=== PATIENT | female | born 2000 | race Caucasian/White ===

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

== ENCOUNTER 2018-01-14 03:52 | Emergency (ER) | payer OTHER, MEDICAID ==
[~2018-01-14] VITALS: Ht 154.9 cm; Wt 68.0 kg
[~2018-01-14 03:52] MED LIST: ACETAMINOPHEN-1 EAC1 PO; CYCLOBENZAPRINE5 MG PO; IBUPROFEN 800800 MG PO
[2018-01-14] MEDS ORDERED: NAPROSYN500 MG (03:59)
[2018-01-14 04:00] VITALS: BP 141/94
[2018-01-14] MEDS ORDERED: AUGMENTIN 875-1 EACH (04:00)
[2018-01-14] MEDS ORDERED: HYDROCODONE-AP1 EAC6 PO (04:04)
== END 2018-01-14 04:15 | disposition home or self-care (01) ==
LOC: M.ERS 03:52
DX: K02.9 Dental caries, unspecified (principal); R59.1 Generalized enlarged lymph nodes

== ENCOUNTER 2018-02-27 00:26 | Emergency (ER) | payer OTHER ==
[~2018-02-27] VITALS: Ht 154.9 cm; Wt 70.3 kg
[~2018-02-27 00:26] MED LIST changes: +AUGMENTIN 875-1 EACH; +HYDROCODONE-AP1 EAC6 PO; +NAPROSYN500 MG
[2018-02-27] MEDS ORDERED: IBUPROFEN 800800 M1 PO (00:52)
[2018-02-27 01:11] LABS: URINE BILIRUBIN NEGATIVE (Negative); URINE BLOOD NEGATIVE (Negative); URINE CLARITY CLEAR; URINE COLOR YELLOW; URINE GLUCOSE-RANDOM NEGATIVE (Negative); URINE KETONES NEGATIVE (Negative); URINE LEUKOCYTES-REFLEX NEGATIVE (Negative); URINE NITRITE-REFLEX NEGATIVE (Negative); URINE PROTEIN NEGATIVE (Negative); URINE SPECIFIC GRAVITY 1.025 (1.005-1.030); URINE UROBILINOGEN 0.2 E.U./dl (0.2-1.0)
[2018-02-27 01:46] VITALS: BP 131/80
== END 2018-02-27 01:46 | disposition home or self-care (01) ==
LOC: M.ERS 00:26
PROVIDERS: Emergency Medicine
DX: M54.9 Dorsalgia, unspecified (principal); R10.10 Upper abdominal pain, unspecified; R11.2 Nausea with vomiting, unspecified; F17.210 Nicotine dependence, cigarettes, uncomplicated

== ENCOUNTER → 2018-02-28 | Outpatient (CLI) | payer OTHER ==
[~2018-02-28] MED LIST changes: +IBUPROFEN 800800 M1 PO
== END ==
LOC: M.CT 15:38
DX: K82.0 Obstruction of gallbladder (principal)

== ENCOUNTER 2018-03-13 21:34 | Emergency (ER) | payer OTHER ==
[~2018-03-13] VITALS: Ht 154.9 cm; Wt 74.4 kg
[2018-03-13] MEDS ORDERED: AMOXICILLIN 50500 MG PO (22:17)
[2018-03-13 22:40] VITALS: BP 123/70
== END 2018-03-13 22:43 | disposition home or self-care (01) ==
LOC: M.ERS 21:34
DX: J02.9 Acute pharyngitis, unspecified (principal)

== ENCOUNTER 2018-03-17 23:30 | Emergency (ER) | payer OTHER ==
[~2018-03-17] VITALS: Ht 154.9 cm; Wt 74.4 kg
[~2018-03-17 23:30] MED LIST changes: +AMOXICILLIN 50500 MG PO
[2018-03-17] MEDS ORDERED: CLARITIN10 MG PO (23:47)
[2018-03-17] MEDS ORDERED: AFRIN15 ML NASAL (23:47)
[2018-03-17] MEDS ORDERED: MEDROLDOSEPACK PO (23:47)
[2018-03-17 23:55] VITALS: BP 125/85
== END 2018-03-17 23:56 | disposition home or self-care (01) ==
LOC: M.ERS 23:30
DX: J06.9 Acute upper respiratory infection, unspecified (principal); F17.210 Nicotine dependence, cigarettes, uncomplicated

== ENCOUNTER 2018-04-05 19:34 | Emergency (ER) | payer OTHER ==
[~2018-04-05] VITALS: Ht 154.9 cm; Wt 73.9 kg
[~2018-04-05 19:34] MED LIST changes: +AFRIN15 ML NASAL; +CLARITIN10 MG PO; +MEDROLDOSEPACK PO
[2018-04-05] MEDS ORDERED: NORCO 5-325 TA1 EACH PO (19:43)
[2018-04-05 20:00] LABS: URINE BILIRUBIN NEGATIVE (Negative); URINE BLOOD NEGATIVE (Negative); URINE CLARITY CLEAR; URINE COLOR YELLOW; URINE GLUCOSE-RANDOM NEGATIVE (Negative); URINE KETONES NEGATIVE (Negative); URINE LEUKOCYTES-REFLEX NEGATIVE (Negative); URINE NITRITE-REFLEX NEGATIVE (Negative); URINE PROTEIN NEGATIVE (Negative); URINE SPECIFIC GRAVITY <= 1.005 (1.005-1.030); URINE UROBILINOGEN 0.2 E.U./dl (0.2-1.0)
[2018-04-05 20:17] LABS: HEMATOCRIT 47.1 % (37.0-47.0); HEMOGLOBIN 16.3 gm/dL (12.0-15.0); MCH 31.8 pg (26.0-34.0); MCHC 34.6 g/dL (28.0-37.0); MCV 92.1 fL (80.0-100.0); MPV 8.5 fl. (7.2-11.1); NUCLEATED RBCS 0 /100WBC; PLATELET COUNT* 308 thou/uL (150-400); RBC 5.11 mil/uL (4.20-5.00); RDW-CV 12.6 % (10.5-14.5); WBC 14.2 thou/uL (4.0-11.0)
[2018-04-05 20:22] LABS: CALCIUM 9.5 mg/dL (8.5-10.1); CREATININE 0.8 mg/dL (0.6-1.3); POTASSIUM 3.8 mmol/L (3.5-5.1)
[2018-04-05 20:26] LABS: ALBUMIN 4.1 g/dL (3.4-5.0); TOTAL BILIRUBIN 0.6 mg/dL (<0.1-1.0); TOTAL PROTEIN 8.3 g/dL (6.4-8.2)
[2018-04-05 20:41] LABS: ABSOLUTE LYMPHOCYTES 1.8 thou/uL (0.8-5.3); ABSOLUTE MONOCYTES 0.3 thou/uL (0.0-1.2); ABSOLUTE NEUTROPHILS 12.1 thou/uL (1.6-8.1)
[2018-04-05 20:42] LABS: PLATELET ESTIMATE ADEQUATE
[2018-04-05 21:08] VITALS: BP 122/70
== END 2018-04-05 21:08 | disposition home or self-care (01) ==
LOC: M.ERS 19:34
PROVIDERS: Emergency Medicine
DX: G89.18 Other acute postprocedural pain (principal); E86.0 Dehydration; Z90.49 Acquired absence of other specified parts of digestive tract

== ENCOUNTER 2018-05-05 23:41 | Emergency (ER) | payer OTHER ==
[~2018-05-05] VITALS: Ht 157.5 cm; Wt 74.4 kg
[~2018-05-05 23:41] MED LIST changes: +NORCO 5-325 TA1 EACH PO
[2018-05-05 23:47] VITALS: BP 147/87
[2018-05-05] MEDS ORDERED: IBUPROFEN 800800 M1 PO (23:53)
== END 2018-05-05 23:58 | disposition home or self-care (01) ==
LOC: M.ERS 23:41
DX: H65.91 Unspecified nonsuppurative otitis media, right ear (principal); M25.511 Pain in right shoulder; F17.210 Nicotine dependence, cigarettes, uncomplicated; Z90.49 Acquired absence of other specified parts of digestive tract

== ENCOUNTER 2018-06-07 03:35 | Emergency (ER) | payer OTHER ==
[~2018-06-07] VITALS: Ht 157.5 cm; Wt 74.4 kg
[2018-06-07] MEDS ORDERED: AMOXICILLIN 50500 M1 PO (04:13)
[2018-06-07] MEDS ORDERED: NORCO 5-325 TA1 EACH PO (04:13)
[2018-06-07 04:33] VITALS: BP 135/75
== END 2018-06-07 04:36 | disposition home or self-care (01) ==
LOC: M.ERS 03:35
DX: K08.89 Other specified disorders of teeth and supporting structures (principal); Z90.49 Acquired absence of other specified parts of digestive tract

== ENCOUNTER 2019-10-18 21:21 | Emergency (ER) | payer OTHER ==
[~2019-10-18] VITALS: Ht 154.9 cm; Wt 73.5 kg
[~2019-10-18 21:21] MED LIST changes: +AMOXICILLIN 50500 M1 PO
[2019-10-18 21:29] VITALS: BP 148/91
[2019-10-18] MEDS ORDERED: BACTRIM DS TAB1 EACH PO (21:48)
[2019-10-18] MEDS ORDERED: DIFLUCAN150 MG PO (22:16)
== END 2019-10-18 22:18 | disposition home or self-care (01) ==
LOC: M.ERS 21:21
DX: L01.00 Impetigo, unspecified (principal); Z90.49 Acquired absence of other specified parts of digestive tract

== ENCOUNTER 2019-12-22 16:50 | Emergency (ER) | payer OTHER ==
[~2019-12-22] VITALS: Ht 154.9 cm; Wt 74.8 kg
[~2019-12-22 16:50] MED LIST changes: +BACTRIM DS TAB1 EACH PO; +DIFLUCAN150 MG PO
[2019-12-22] MEDS ORDERED: TRAMADOL 50 MG50 MG PO (17:13)
[2019-12-22] MEDS ORDERED: AMOXICILLIN 50500 MG PO (17:13)
[2019-12-22 17:15] VITALS: BP 153/78
== END 2019-12-22 17:22 | disposition home or self-care (01) ==
LOC: M.ERS 16:50
DX: K02.9 Dental caries, unspecified (principal); K03.81 Cracked tooth; Z90.49 Acquired absence of other specified parts of digestive tract

== ENCOUNTER 2020-03-30 16:30 | Emergency (ER) | payer OTHER ==
[~2020-03-30] VITALS: Ht 154.9 cm; Wt 75.8 kg
[~2020-03-30 16:30] MED LIST changes: +TRAMADOL 50 MG50 MG PO
[2020-03-30 17:17] LABS: URINE BILIRUBIN NEGATIVE (Negative); URINE BLOOD NEGATIVE (Negative); URINE CLARITY CLEAR; URINE COLOR YELLOW; URINE GLUCOSE-RANDOM NEGATIVE (Negative); URINE KETONES NEGATIVE (Negative); URINE LEUKOCYTES-REFLEX NEGATIVE (Negative); URINE NITRITE-REFLEX NEGATIVE (Negative); URINE PROTEIN NEGATIVE (Negative); URINE SPECIFIC GRAVITY 1.015 (1.005-1.030); URINE UROBILINOGEN 0.2 E.U./dl (0.2-1.0)
[2020-03-30] MEDS ORDERED: DIFLUCAN150 MG PO (18:01)
[2020-03-30 18:09] VITALS: BP 122/81
== END 2020-03-30 18:10 | disposition home or self-care (01) ==
LOC: M.ERS 16:30
PROVIDERS: Nurse Practitioner Family
DX: N72 Inflammatory disease of cervix uteri (principal); N89.8 Other specified noninflammatory disorders of vagina; Z90.49 Acquired absence of other specified parts of digestive tract

== ENCOUNTER 2020-09-13 02:25 | Emergency (ER) | payer OTHER ==
[~2020-09-13] VITALS: Ht 154.9 cm; Wt 77.1 kg
== END 2020-09-13 03:25 | disposition home or self-care (01) ==
LOC: M.ERS 02:25
DX: Z53.21 Procedure and treatment not carried out due to patient leaving prior to being seen by health care provider (principal)

== ENCOUNTER 2021-01-02 13:18 | Emergency (ER) | payer OTHER ==
[~2021-01-02] VITALS: Ht 154.9 cm; Wt 79.8 kg
[2021-01-02] MEDS ORDERED: PREDNISONE 20 M20 M1 PO (13:54)
[2021-01-02] MEDS ORDERED: ZPAK PO (13:54)
[2021-01-02] MEDS ORDERED: DIFLUCAN150 MG PO (13:54)
[2021-01-02] MEDS ORDERED: VENTOLIN HFA 1818 GM INH (13:54)
[2021-01-02 14:58] VITALS: BP 132/74
== END 2021-01-02 14:59 | disposition home or self-care (01) ==
LOC: M.ERS 13:18
DX: R05.9 Cough, unspecified (principal); Z20.822 Contact with and (suspected) exposure to COVID-19; Z90.49 Acquired absence of other specified parts of digestive tract